=== PATIENT | male | born 1990 | race Caucasian/White ===

== ENCOUNTER 2020-10-11 16:21 | Inpatient (IN) | payer OTHER, SELFPAY ==
[~2020-10-11] VITALS: Ht 188 cm; Wt 76.5 kg
[2020-10-11 16:40] LABS: Calcium, Ionized (POC) 1.03 mmol/L (1.10-1.46); Chloride (POC) 90 mmol/L (98-108); Creatinine (POC) 3.7 mg/dL (0.8-1.3); Glucose (ISTAT POC) >700 mg/dL (70-99); Hemoglobin (POC) 17.7 g/dL (13.5-17.5); Potassium (POC) 7.8 mmol/L (3.5-5.5); Sodium (POC) 112 mmol/L (135-148); Total CO2 (POC) 6 mmol/L (21-32)
[2020-10-11 16:55] LABS: BASOPHILS ABSOLUTE AUTO 0.05 K/mm3 (0.00-0.23); BASOPHILS PERCENT AUTO 0 % (0-2); EOSINOPHILS PERCENT AUTO 0 % (0-6); Hematocrit 49.2 % (37.0-53.0); Hemoglobin 16.4 g/dL (13.5-17.5); IMMATURE GRAN ABSOLUTE AUTO 0.07 K/mm3 (0.00-0.10); IMMATURE GRAN PERCENT AUTO 1 % (0-1); LYMPHOCYTES ABSOLUTE AUTO 0.65 K/mm3 (0.84-5.20); LYMPHOCYTES PERCENT AUTO 4 % (21-46); MONOCYTES ABSOLUTE AUTO 1.52 K/mm3 (0.16-1.47); MONOCYTES PERCENT AUTO 10 % (4-13); Mean Corpuscular HGB 32.1 pg (26.0-34.0); Mean Corpuscular HGB Conc 33.3 g/dL (31.5-36.5); Mean Corpuscular Volume 96 fL (80-100); Mean Platelet Volume 11.4 fL (9.1-12.4); NEUTROPHILS ABSOLUTE AUTO 12.48 K/mm3 (1.96-9.15); NEUTROPHILS PERCENT AUTO 85 % (41-73); Platelet Count 113 K/mm3 (150-400); RDW Coefficient Variation 11.2 % (11.7-14.2); RDW Standard Deviation 39.8 fL (35.1-46.3); Red Blood Cell Count 5.11 M/mm3 (4.30-5.90); White Blood Cell Count 14.77 K/mm3 (4.00-11.30)
[2020-10-11 17:02] LABS: PCO2 Arterial 28.2 mmHg (35-45); PO2 Arterial 420 mmHg (80-100)
[2020-10-11 17:05] LABS: pH Blood Arterial <6.80 (7.35-7.45)
[2020-10-11 17:18] LABS: Alanine Aminotransfer (ALT/SGP 56 U/L (12-78); Albumin, Blood 3.2 g/dL (3.4-5.0); Alk Phos 143 U/L (50-136); Anion Gap 34 mmol/L (6-16); Aspartate Aminotrans (AST/SGOT 50 U/L (12-37); Bilirubin, Total 0.7 mg/dL (0.1-1.0); Blood Urea Nitrogen 82 mg/dL (8-24); Bun/Creatinine Ratio 24.9 (12.0-20.0); CO2, Blood 3 mmol/L (21-32); Calcium, Blood 7.9 mg/dL (8.5-10.1); Chloride, Blood 76 mmol/L (98-108); Creatinine, Blood 3.29 mg/dL (0.60-1.20); Globulin, Blood 3.3 g/dL (2.2-4.0); Glomerular Filtration Rate 23 (60-); Glucose, Blood 857 mg/dL (70-99); Potassium, Blood 7.7 mmol/L (3.5-5.5); Sodium, Blood 113 mmol/L (136-145); Total Protein, Blood 6.5 g/dL (6.4-8.2)
[2020-10-11] MEDS ORDERED: BASAGLAR K100 UNIT/1 (17:25)
[2020-10-11] MEDS ORDERED: HUMALOG KW100 UNIT/1 (17:25)
[2020-10-11 17:42] LABS: Influenza A, PCR Negative (NEGATIVE); Influenza B, PCR Negative (NEGATIVE); Resp Syncytial Virus, PCR Negative (NEGATIVE); SARS-Cov-2 (COVID-19) PCR, MMC Negative (NEGATIVE)
[2020-10-11 17:54] LABS: Beta-hydroxybutyrate >138.0 mg/dL (0.2-2.8); Ethanol (Alcohol), Blood, Med <3 mg/dL; Magnesium, Blood 4.1 mg/dL (1.6-2.4); Phosphorus, Blood 13.6 mg/dL (2.5-4.9)
[2020-10-11 17:55] LABS: Source, Urine Catheter
[2020-10-11 17:57] LABS: Appearance, Urine Hazy (Clear); Bilirubin, Urine Neg (Neg); Blood, Urine 4+ (Neg); Color, Urine Yellow (P-Yellow); Glucose Qualitative, Urine 4+ (Neg); Ketones, Urine 3+ (Neg); Leukocyte Esterase, Urine Neg (Neg); Nitrite, Urine Neg (Neg); Protein, Urine 3+ (Neg); Urobilinogen, Urine NORM (Normal)
[2020-10-11 18:42] LABS: Red Blood Cells, Urine 0-2 /hpf (0-2)
[2020-10-11 18:43] LABS: Amorphous Mod (0-Heavy); Bacteria Few /hpf; Squamous Epithelial Cells Not Seen /hpf (Few)
[2020-10-11 18:47] LABS: U Amphetamine Screen Not Detected; U Barbituate Screen Not Detected; U Benzodiazapine Screen Not Detected; U Buprenorphine Screen Not Detected; U Cannabinoids Screen DETECTED; U Cocaine Screen Not Detected; U Methadone Screen Not Detected; U Methamphetamine Screen Not Detected; U Opiates Screen Not Detected; U Oxycodone Screen Not Detected; U Phencyclidine Screen Not Detected; U Propoxyphene Screen Not Detected
[2020-10-11 19:19] LABS: Glucose, Blood 637 mg/dL (70-99)
[2020-10-11 20:32] LABS: International Normalized Ratio 1.15; Prothrombin Time Results 12.2 Sec (9.7-11.5)
[2020-10-11 20:49] LABS: Thyroid Stimulating Hormone 0.501 uIU/mL (0.360-4.800)
[2020-10-11 20:50] LABS: Bun/Creatinine Ratio 26.8 (12.0-20.0); Calcium, Blood 6.3 mg/dL (8.5-10.1); Creatinine, Blood 2.8 mg/dL (0.60-1.20)
[2020-10-11 20:55] LABS: Potassium, Blood 4.7 mmol/L (3.5-5.5)
--- NOTE | 2020-10-11 21:00 | NUR ---
ADMITTED TO ICU: PT ARRIVES FROM THE ED @ 1915, INTUBATED & SEDATED. INSULIN GTT @ 8. CRITICAL GLUCOSE RECEIVED @ 637. LEVOPHED GTT @ 8mcg/min TO LHA IV. VENT: AC 22/550, 5/35%. CALL TO DR GARCIA FOR CENTRAL LINE PLACEMENT & VENT MANAGEMENT. 1999 -DR GARCIA @ BEDSIDE, CENTRAL LINE PLACED, VASOPRESSIN STARTED. LEVOPHED @ 30mcg/mIN. PRECEDEX INC TO 1.4mcg/kg/hr. PROPOFOL @ 35mcg/kg/min. PT RESPONDS TO PAINFUL STIMULI, ABLE TO FOLLOW SOME COMMANDS. OG TUBE REPLACED D/T COILING IN MOUTH. IMMEDIATE RETURN OF 500ml COFFEE GROUND EMESIS. CXR @ BEDSIDE & DR GARCIA CONFIRMS PLACEMENT. TEMP FERNANDES PATENT & DRAINING TO GRAVITY. SEE FULL ADMIT ASSESSMENT
[2020-10-11 21:19] LABS: Hematocrit 38.5 % (37.0-53.0); Hemoglobin 13.4 g/dL (13.5-17.5)
[2020-10-11 21:36] LABS: Albumin, Blood 2.6 g/dL (3.4-5.0); Anion Gap 22 mmol/L (6-16); Blood Urea Nitrogen 77 mg/dL (8-24); Bun/Creatinine Ratio 26.3 (12.0-20.0); CO2, Blood 7 mmol/L (21-32); Calcium, Blood 6.1 mg/dL (8.5-10.1); Chloride, Blood 104 mmol/L (98-108); Creatinine, Blood 2.93 mg/dL (0.60-1.20); Glomerular Filtration Rate 27 (60-); Glucose, Blood 461 mg/dL (70-99); Phosphorus, Blood 3.8 mg/dL (2.5-4.9); Sodium, Blood 133 mmol/L (136-145)
[2020-10-11 23:32] LABS: PCO2 Arterial 24.8 mmHg (35-45); PO2 Arterial 165 mmHg (80-100); pH Blood Arterial 7.19 (7.35-7.45)
[2020-10-12 03:28] LABS: BASOPHILS PERCENT AUTO 0 % (0-2); EOSINOPHILS ABSOLUTE AUTO 0.01 K/mm3 (0.00-0.68); EOSINOPHILS PERCENT AUTO 0 % (0-6); Hematocrit 32.4 % (37.0-53.0); Hemoglobin 11.8 g/dL (13.5-17.5); IMMATURE GRAN ABSOLUTE AUTO 0.01 K/mm3 (0.00-0.10); IMMATURE GRAN PERCENT AUTO 0 % (0-1); LYMPHOCYTES ABSOLUTE AUTO 0.49 K/mm3 (0.84-5.20); LYMPHOCYTES PERCENT AUTO 14 % (21-46); MONOCYTES ABSOLUTE AUTO 0.54 K/mm3 (0.16-1.47); MONOCYTES PERCENT AUTO 15 % (4-13); Mean Corpuscular HGB 31.6 pg (26.0-34.0); Mean Corpuscular HGB Conc 36.4 g/dL (31.5-36.5); Mean Platelet Volume 10.7 fL (9.1-12.4); NEUTROPHILS ABSOLUTE AUTO 2.51 K/mm3 (1.96-9.15); NEUTROPHILS PERCENT AUTO 70 % (41-73); RDW Coefficient Variation 10.8 % (11.7-14.2); RDW Standard Deviation 34.5 fL (35.1-46.3); Red Blood Cell Count 3.73 M/mm3 (4.30-5.90); White Blood Cell Count 3.56 K/mm3 (4.00-11.30)
[2020-10-12 03:30] LABS: Mean Corpuscular Volume 87 fL (80-100)
[2020-10-12 03:33] LABS: Platelet Count 42 K/mm3 (150-400)
[2020-10-12 03:53] LABS: Albumin, Blood 2.9 g/dL (3.4-5.0); Albumin/Globulin Ratio 1.4 (0.8-1.8); Bilirubin, Total 0.4 mg/dL (0.1-1.0); Bun/Creatinine Ratio 32.9 (12.0-20.0); Calcium, Blood 6.7 mg/dL (8.5-10.1); Creatinine, Blood 2.22 mg/dL (0.60-1.20); Potassium, Blood 3.6 mmol/L (3.5-5.5); Total Protein, Blood 4.9 g/dL (6.4-8.2)
[2020-10-12 05:15] LABS: PCO2 Arterial 32.9 mmHg (35-45); PO2 Arterial 63.7 mmHg (80-100)
[2020-10-12 05:16] LABS: pH Blood Arterial 7.26 (7.35-7.45)
--- NOTE | 2020-10-12 06:11 | NUR ---
SHIFT SUMMARY: VENT: AC 18/500, 5/35%. PROPOFOL INF @ 35mcg/kg/min, PRECEDEX @ 1mcg/kg/hr, D5 1/2NS @ 200ml/hr, INSULIN @ 3u/hr. VASOPRESSIN ON STANDBY @ 0000, LEVOPHED ON STANDBY @ 0230, MAP REMAINS >65. 1220ml URINE OUTPUT. DECREASED OUTPUT FROM OG TUBE. PLAN FOR ECHO THIS AM. WILL REPORT TO DAY SHIFT RN.
--- NOTE | 2020-10-12 07:00 | NUR ---
PT RECEIVED FROM MARYRN, PT LYING IN HOSPITAL BED, INTUBATED 18/500/5/30% EVIDENCE OF DRIED BLOOD AROUND MOUTH, PT WITH PROPOFOL AT 35 MCG/KG/MIN, PRECEDEX AT 1, PROTONIX AT 10, D5 0.45% AT 200, INSULIN AT 4. URINE CLEAR YELLOW FROM FERNANDES AT THIS TIME. PT GRIMACES TO VOICE, DOES NOT OPEN EYES OR SQUEEZE HANDS ON COMMAND. COUGHING PRODUCTIVE OF BROWNISH/GREEN RETURN, NG HAS SAME COLOR RETURN.
--- NOTE | 2020-10-12 08:00 | NUR ---
DR. GARCIA IN TO SEE PT, STATUS UPDATE, ORDERS RECEIVED.
[2020-10-12 10:13] LABS: Albumin, Blood 2.4 g/dL (3.4-5.0); Anion Gap 9 mmol/L (6-16); Blood Urea Nitrogen 71 mg/dL (8-24); Bun/Creatinine Ratio 33.5 (12.0-20.0); CO2, Blood 18 mmol/L (21-32); Calcium, Blood 6.9 mg/dL (8.5-10.1); Chloride, Blood 113 mmol/L (98-108); Creatinine, Blood 2.12 mg/dL (0.60-1.20); Glomerular Filtration Rate 39 (60-); Glucose, Blood 280 mg/dL (70-99); Phosphorus, Blood 1.6 mg/dL (2.5-4.9); Potassium, Blood 3.7 mmol/L (3.5-5.5); Sodium, Blood 140 mmol/L (136-145); Thyroid Stimulating Hormone 0.641 uIU/mL (0.360-4.800)
--- NOTE | 2020-10-12 12:30 | NUR ---
PT PULLING AT TUBES, ABLE TO GET CIRCUIT DISCONNECTED FROM ETT. DR. GARCIA IN, PT STATES HE HAS PAIN AND IS UNCOMFORTABLE, DR. GARCIA ORDERS FENTANYL 50MCG NOW, AND ORDERS PT TO BE EXTUBATED. ARELISDIRECTOR CAMP IN ROOM AND JENNART IN ROOM FOR PREPARATION OF EXTUBATION. PT CALMED AND REASSURED, NODDED RELIEF TO PAIN MEDICATION. PT EXTUBATED, OG TUBE REMOVED WELL @ 1245. COUGH PRESENT, ORIENTED PATIENT TO TIME AND SITUATION, RESTRAINTS REMOVED. RESTING.
[2020-10-12 15:57] LABS: Hematocrit 29.9 % (37.0-53.0)
[2020-10-12 16:05] LABS: Albumin, Blood 2.4 g/dL (3.4-5.0); Anion Gap 10 mmol/L (6-16); Blood Urea Nitrogen 68 mg/dL (8-24); Bun/Creatinine Ratio 33.3 (12.0-20.0); CO2, Blood 16 mmol/L (21-32); Chloride, Blood 115 mmol/L (98-108); Creatinine, Blood 2.04 mg/dL (0.60-1.20); Glomerular Filtration Rate 41 (60-); Glucose, Blood 229 mg/dL (70-99); Phosphorus, Blood 1.4 mg/dL (2.5-4.9); Potassium, Blood 3.4 mmol/L (3.5-5.5); Sodium, Blood 141 mmol/L (136-145)
--- NOTE | 2020-10-12 18:20 | NUR ---
THIS MORNING STARTED WITH JEANNETTE BEING ON PROPOFOL @35, PRECEDEX @ 1/PROTONIX @ 10, INTUBATED ON VENT SETTINGS OF 18/500/5/30%. HIS WRISTS WERE RESTRAINED, OG TUBE IN PLACE WITH GREENISH/BROWN RETURN. HOURLY BLOOD GLUCOSE AND AN INSULIN GTT AT 4U. SEDATION VACATION, PATIENT APPROPRIATE, FOLLOWING COMMANDS. AROUND NOON, PT WAS ABLE TO SEPARATE CIRCUIT FROM ETT. DR. GARCIA ORDERED FENTANYL, AND EXTUBATION. PT WAS EXTUBATED AT 1245, OG TUBE REMOVED. PT APPROPRIATE, REMAINED ON PRECEDEX WITH PROPOFOL TURNED OFF. PT WAS RESTING AND ASKING QUESTIONS APPROPRIATELY. FERNANDES CATHETER REMOVED PER PATIENT REQUEST. BEDSIDE SWALLOW EVAL DONE. PT COMPLAINS OF PAIN, "ALL OVER" MOSTLY HEAD,THROAT, KNEES, HIPS. MEDICATED. THEN PATIENT NAUSEATED, MEDICATED. PT'S MOM ARRIVED FROM OUT OF THE AREA, PT COMPLAINING OF CRAMPS IN HIS LEGS, HEAT PACK APPLIED. HE IS TOLERATING ICE CHIPS, WATER, JELLO. SCD'S REMOVED.
--- NOTE | 2020-10-12 22:00 | NUR ---
CARE ASSUMED 1900 PT A/O X 4, SPEAKING TO HIS MOTHER AT BEDSIDE. PT ABLE TO MAKE NEEDS KNOWN. HE FREQUENTLY MOANS/SOBBING DUE TO PAIN IN LEGS (07/23). PTS MOTHER STATES HE HAS THESE PAIN WHEN HE IS IN DKA BUT NOT AT BASELINE. TREATED WITH FENTANYL PER EMAR, PAIN (06/23) AFTER TREATMENT. PT DOES NOT WANT HEAT PAD/COLD THERAPY. PT HAS CENTRAL LINE IN PLACE, INFUSING/RETURNING BLOOD WELL. VSS. PT ON RA. NSR. PT PRESENTS WITH INEFFECTIVE COPING MECHANISMS. NEEDS ENCOURAGEMENT TO PARTICIPATE IN CARE, POSITION SELF IN BED, ETC. PT ASKED FOR SCD'S TO BE REMOVED, EDUCATED ON IMPORTANCE OF SCD'S, BUT PT STILL WOULD LIKE THEM REMOVED. WILL CONTINUE TO MONITOR.
[2020-10-12 22:18] LABS: Albumin, Blood 2.6 g/dL (3.4-5.0); Anion Gap 11 mmol/L (6-16); Blood Urea Nitrogen 68 mg/dL (8-24); CO2, Blood 16 mmol/L (21-32); Calcium, Blood 7.5 mg/dL (8.5-10.1); Chloride, Blood 115 mmol/L (98-108); Glomerular Filtration Rate 42 (60-); Glucose, Blood 180 mg/dL (70-99); Potassium, Blood 3.3 mmol/L (3.5-5.5); Sodium, Blood 142 mmol/L (136-145)
--- NOTE | 2020-10-13 00:26 | NUR ---
UPDATE PT UP TO BEDSIDE COMMODE, REQUIRES 2 PERSON ASSIST DUE TO PT STATING HAVING "BAD LEG AND HIP PAIN." HAD LARGE BM. PT MOANING/SOBBING BUT UNABLE TO STATE THE EXACT REASON FOR HIS PAIN OR WHAT HAS HELPED IN THE PAST. PT ATTEMPTING TO SIT-UP/ MOVE OUT OF BED TO FIND HIS "PJS" AND PULLING AT LINES. EDUCATED PT ON USING CALL LIGHT FOR ASSISTANCE AT ALL TIMES. PT ALSO HAS NAUSEA AND ATTEMPTS OF VOMIT WITH LITTLE COMING UP. DR. GARCIA CALLED AND UPDATED ON PTS PAIN STATUS. ALSO, ON PTS K OF 3.3, PHOS OF 1. AND BLOOD CULTURE RESULTS OF GRAM POSITIVE COCCI IN CHAINS GROWING. RECIEVED ORDERS FOR KPHOS 30 MM AND FLEXERIL 10 MG Q8 FOR MUSCLE SPASMS.
[2020-10-13 05:27] LABS: BASOPHILS ABSOLUTE AUTO 0.01 K/mm3 (0.00-0.23); BASOPHILS PERCENT AUTO 0 % (0-2); EOSINOPHILS ABSOLUTE AUTO 0.08 K/mm3 (0.00-0.68); EOSINOPHILS PERCENT AUTO 2 % (0-6); Hemoglobin 10.7 g/dL (13.5-17.5); IMMATURE GRAN ABSOLUTE AUTO 0.08 K/mm3 (0.00-0.10); IMMATURE GRAN PERCENT AUTO 2 % (0-1); LYMPHOCYTES ABSOLUTE AUTO 0.67 K/mm3 (0.84-5.20); LYMPHOCYTES PERCENT AUTO 13 % (21-46); MONOCYTES ABSOLUTE AUTO 0.85 K/mm3 (0.16-1.47); MONOCYTES PERCENT AUTO 16 % (4-13); Mean Corpuscular HGB 31.9 pg (26.0-34.0); Mean Corpuscular HGB Conc 36.9 g/dL (31.5-36.5); Mean Corpuscular Volume 87 fL (80-100); NEUTROPHILS ABSOLUTE AUTO 3.61 K/mm3 (1.96-9.15); NEUTROPHILS PERCENT AUTO 68 % (41-73); RDW Coefficient Variation 11.2 % (11.7-14.2); RDW Standard Deviation 35.8 fL (35.1-46.3); Red Blood Cell Count 3.35 M/mm3 (4.30-5.90)
[2020-10-13 05:46] LABS: Platelet Count 36 K/mm3 (150-400)
[2020-10-13 05:52] LABS: Albumin, Blood 2.4 g/dL (3.4-5.0); Anion Gap 12 mmol/L (6-16); Blood Urea Nitrogen 63 mg/dL (8-24); Bun/Creatinine Ratio 29.3 (12.0-20.0); CO2, Blood 15 mmol/L (21-32); Calcium, Blood 7.6 mg/dL (8.5-10.1); Chloride, Blood 114 mmol/L (98-108); Creatinine, Blood 2.15 mg/dL (0.60-1.20); Glomerular Filtration Rate 38 (60-); Glucose, Blood 254 mg/dL (70-99); Phosphorus, Blood 2.5 mg/dL (2.5-4.9); Potassium, Blood 3.5 mmol/L (3.5-5.5); Sodium, Blood 141 mmol/L (136-145)
[2020-10-13 05:59] LABS: Albumin, Blood 2.4 g/dL (3.4-5.0); Bilirubin, Total 0.6 mg/dL (0.1-1.0); Bun/Creatinine Ratio 29.4 (12.0-20.0); Calcium, Blood 7.6 mg/dL (8.5-10.1); Creatinine, Blood 2.14 mg/dL (0.60-1.20); Globulin, Blood 2.4 g/dL (2.2-4.0); Magnesium, Blood 2.1 mg/dL (1.6-2.4); Potassium, Blood 3.5 mmol/L (3.5-5.5); Total Protein, Blood 4.8 g/dL (6.4-8.2)
--- NOTE | 2020-10-13 07:00 | NUR ---
PT RECEIVED FROM MIKAL LAI. IN HIS BED, LYING SUPINE, GRABBING AT HIS LEGS, MOANING. PROTONIX IS INFUSING AT 10, TKO X 2, PT STATES THAT HE HAS PAIN IN HIS THROAT AND LEGS, STATES IT'S NORMAL WHEN IN DKA. HE ALSO "HEARD" MY EARRING DROP AND ROLL ACROSS THE FLOOR. I TOLD HIM THAT I DIDN'T HAVE ANY EARRINGS IN TODAY, HE SAID I CAN HEAR IT ROLLING. COOPERATIVE AND USES MANNERS. ORIENTED TO SITUATION AND CIRCUMSTANCES, USING URINAL APPROPRIATELY.
--- NOTE | 2020-10-13 07:38 | NUR ---
SHIFT SUMMARY PT A/O X 4. CONTINUES TO MOAN IN PAIN WHEN NURSES ENTER THE ROOM. STATES THE PAIN IS 10/10 IN LOWER EXTREMS. PT STATES HAVING PAIN AT BASELINE BUT PN IS WORSE WHEN PT HAS DKA. TREATED WITH EMAR WITH LITTLE EFFECT (9/10). PT DOES NOT WANT TO KEEP SCD'S ON DUE PAIN. PT HAS ELEVATED SBP 140-150'S WHEN COMPLAINING OF PAIN. TREATED WITH EMAR. NSR T/O SHIFT, HR 90-100'S. PT ABLE TO TOLERATE WATER AND PUDDING PO. HAVING SLIGHT NAUSEA BUT NO VOMITING T/O SHIFT. PROTONIX DRIP INFUSING IN LEFT AV IV. TKO TO RIGHT CENTRAL LINE. PT USES URINAL WITH MINIMAL ASSISTANCE, URINE YELLOW/CLEAR. WILL REPORT TO ONCOMING SHIFT.
[2020-10-13 08:10] LABS: HBSAG SCREEN Negative (Negative); HEP A AB, IGM Negative (Negative); HEP B CORE AB, IGM Negative (Negative); HEP C VIRUS AB <0.1 (0.0-0.9); HIV SCREEN 4TH GENERATION WRFX Non Reactive (Non Reactive)
[2020-10-13 10:05] LABS: Percent Saturation 36.5 % (20.0-50.0)
--- NOTE | 2020-10-13 12:55 | NUR ---
BLOOD REFUSAL- PT STATES DOES NOT WANT TO RECEIVE BLOOD-SIGNED REFUSAL.
--- NOTE | 2020-10-13 17:57 | NUR ---
JEANNETTE HAS HAD A GOOD AFTERNOON, HE IS BEGINNING TO REST BETTER. HE HAS TOLERATED ORAL INTAKE, A SMALL AMOUNT BECAUSE HE SAYS HIS THROAT HURTS TOO MUCH TO HAVE TOO MUCH. ENCOURAGING FLUIDS, WATER, GREEN TEA FROM HIS MOM. HE DID STAND AND SHUFFLE AT THE SIDE OF THE BED AT LUNCH TIME TODAY. DANGLED ON THE SIDE OF THE BED, HE MOVED MORE AND REPOSITIONED HIMSELF OFTEN. THE NEURONTIN AND THE ASPERCREME SEEM TO HAVE IMPROVED HIS LEG CRAMPS, HE IS MOANING LESS OFTEN AND ONLY COMPLAINING OF HEADACHE. TYLENOL GIVEN PER HIS REQUEST. COOL WASHCLOTHS GIVEN, WARM BLANKET AROUND HIS SHOULDERS. REPORT GIVEN TO JAGJIT FLORES RN FOR PCU#6.
--- NOTE | 2020-10-13 18:30 | NUR ---
TRANSFERRED VIA BED TO PCU-6, PT TOLERATED TRANSFER WELL, MOVED FROM BED TO BED WITH NO ASSIST FROM NURSES.
--- NOTE | 2020-10-13 18:39 | NUR ---
PATIENT ARRIVED TO PCU AND TRANSFERED SELF TO BED BY SCOOTING SELF FROM ONE BED TO THE OTHER. PATIENT RESPONDS TO VERBAL STIMULUS, NO SIGNS OF ACUTE DISTRESS, VSS, WCTM.
[2020-10-13 21:18] LABS: Vancomycin, Trough 14.6 ug/mL (5.0-10.0)
--- NOTE | 2020-10-13 21:31 | NUR ---
CARE ASSUMPTION / CALL TO ACTUARIAL ANALYST PT A&O X4. MONITOR SHOWS NSR, HR 80's-90's. SPO2 > 92% ON RA. BP ELEVATED, OTHERWISE VSS. CALL TO ACTUARIAL ANALYST BRITTANY TO REPORT HTN W/ ACTUARIAL ANALYST ORDER FOR ONE TIME PO CLONIDINE, SEE ORDER. PT REPORTS SORE THROAT POST PREVIOUS EXTUBATION. PT CHOKING ON GABAPENTIN CAPSULE THIS SHIFT, RESOLVED W/ COUGHING & DRINKING WATER. PT TOLERATING SMALLER PILLS LIKE CLONIDINE TABLET FINE.
--- NOTE | 2020-10-14 01:00 | NUR ---
ELEVATED BP CALL TO MD MARSHALL TO REPORT BP STILL ELEVATED DESPITE PREVIOUS PO 1X CLONIDINE TX. W/ NEW ORDER FOR PRN IV HYDRALAZINE, SEE ORDER.
[2020-10-14 04:00] LABS: Hematocrit 31.4 % (37.0-53.0); Hemoglobin 11.4 g/dL (13.5-17.5); Mean Corpuscular HGB 31.1 pg (26.0-34.0); Mean Corpuscular HGB Conc 36.3 g/dL (31.5-36.5); Mean Corpuscular Volume 86 fL (80-100); Mean Platelet Volume 12.6 fL (9.1-12.4); RDW Coefficient Variation 11.4 % (11.7-14.2); RDW Standard Deviation 36.2 fL (35.1-46.3); Red Blood Cell Count 3.66 M/mm3 (4.30-5.90); White Blood Cell Count 7.13 K/mm3 (4.00-11.30)
[2020-10-14 04:06] LABS: Platelet Count 38 K/mm3 (150-400)
[2020-10-14 04:56] LABS: Albumin, Blood 2.4 g/dL (3.4-5.0); Anion Gap 12 mmol/L (6-16); Blood Urea Nitrogen 45 mg/dL (8-24); Bun/Creatinine Ratio 26.6 (12.0-20.0); CO2, Blood 17 mmol/L (21-32); Chloride, Blood 116 mmol/L (98-108); Creatinine, Blood 1.69 mg/dL (0.60-1.20); Glomerular Filtration Rate 51 (60-); Glucose, Blood 119 mg/dL (70-99); Phosphorus, Blood 1.9 mg/dL (2.5-4.9); Potassium, Blood 2.4 mmol/L (3.5-5.5); Sodium, Blood 145 mmol/L (136-145)
--- NOTE | 2020-10-14 05:13 | NUR ---
CRITICAL K / CALL TO MD OLMOS NOTIFIED OF PT K: 2.4 THIS AM W/ ORDER FOR 60 MEQ IV KCL & 40 MEQ PO KCL. ALSO NOTIFIED OF PT BP STILL ELEVATED DESPITE IV HYDRALAZINE TX. W/ ORDER TO GIVE ADDITIONAL DOSE OF HYDRALAZINE NOW.
[2020-10-14 05:27] LABS: BAND PERCENT MAN 6 % (0-8); BASOPHILS PERCENT MAN 0 % (0-2); EOSINOPHILS ABSOLUTE MAN 0.28 K/mm3 (0.00-0.68); EOSINOPHILS PERCENT MAN 4 % (0-6); LYMPHOCYTES ABSOLUTE MAN 0.71 K/mm3 (0.84-5.20); LYMPHOCYTES PERCENT MAN 10 % (21-46); MONOCYTES ABSOLUTE MAN 0.85 K/mm3 (0.16-1.47); MONOCYTES PERCENT MAN 12 % (4-13); NEUTROPHILS ABSOLUTE MAN 5.27 K/mm3 (1.96-9.15); SEG NEUTROPHILS PERCENT MAN 68 % (41-73); TOTAL CELLS COUNTED 100
--- NOTE | 2020-10-14 06:35 | NUR ---
SHIFT SUMMARY PT A&O X4. BP ELEVATED, OTHERWISE VSS. SPO2 > 92% ON RA. MONITOR SHOWS NSR, HR 70's-90's. PT C/O SORE THROAT & EAR PAIN, MEDICATED W/ PRN TYLENOL PER EMAR X1 THIS SHIFT W/ PT REPORT OF IMPROVEMENT. PT DIFFICULTY SWALLOWING POST EXTUBATION. PT TOLERATING PILLS TAKEN W/ APPLESAUCE. PT W/ BLOODY NOSE THIS SHIFT, RESOLVED. PT POTASSIUM CRITICALLY LOW THIS AM. IV KCL INFUSING PER ORDERS. CBG's STABLE. WILL CONTINUE TO MONITOR & PROVIDE CARE UNTIL REPORT OFF TO DAY SHIFT RN.
--- NOTE | 2020-10-14 16:33 | NUR ---
PHONE CALL; PHONE CALL TO DR. CURIEL TO REPORT BLOOD SUGAR OF 410. VERBAL ORDER FROM DR. CURIEL TO GIVE 10UNITS LANTUS IN ADDITION TO 12 UNITS REGULAR HUMILIN PER SLIDING SCALE.
--- NOTE | 2020-10-14 17:34 | NUR ---
SHIFT SUMMARY; A/A/OX4 THROUGHOUT SHIFT. INDEPENDANT IN ROOM WITH STANDBY ASSIST. SHOWER TODAY WITHOUT DIFFICULTY. MOM AT BESIDE IN AFTERNOON. INSULIN COVERAGE NEEDED. VSS, NO ACUTE MEDICAL CHANGES DURING SHIFT. WILL CONTINUE TO MONITOR AND TREAT UNTIL CHANGE OF SHIFT.
[2020-10-15 05:26] LABS: Hematocrit 29.5 % (37.0-53.0); Hemoglobin 10.8 g/dL (13.5-17.5); Mean Corpuscular HGB Conc 36.6 g/dL (31.5-36.5); Mean Corpuscular Volume 88 fL (80-100); Platelet Count 71 K/mm3 (150-400); RDW Coefficient Variation 11.9 % (11.7-14.2); RDW Standard Deviation 37.9 fL (35.1-46.3); Red Blood Cell Count 3.37 M/mm3 (4.30-5.90); White Blood Cell Count 11.48 K/mm3 (4.00-11.30)
[2020-10-15 05:54] LABS: BAND PERCENT MAN 4 % (0-8); BASOPHILS PERCENT MAN 0 % (0-2); EOSINOPHILS PERCENT MAN 7 % (0-6); LYMPHOCYTES PERCENT MAN 7 % (21-46); MONOCYTES ABSOLUTE MAN 1.72 K/mm3 (0.16-1.47); MONOCYTES PERCENT MAN 15 % (4-13); NEUTROPHILS ABSOLUTE MAN 8.15 K/mm3 (1.96-9.15); SEG NEUTROPHILS PERCENT MAN 67 % (41-73); TOTAL CELLS COUNTED 100
[2020-10-15 05:57] LABS: Alanine Aminotransfer (ALT/SGP 23 U/L (12-78); Albumin, Blood 2.3 g/dL (3.4-5.0); Albumin/Globulin Ratio 0.7 (0.8-1.8); Alk Phos 69 U/L (50-136); Anion Gap 10 mmol/L (6-16); Aspartate Aminotrans (AST/SGOT 28 U/L (12-37); Bilirubin, Total 0.6 mg/dL (0.1-1.0); Blood Urea Nitrogen 28 mg/dL (8-24); Bun/Creatinine Ratio 20.1 (12.0-20.0); CO2, Blood 22 mmol/L (21-32); Calcium, Blood 8.2 mg/dL (8.5-10.1); Chloride, Blood 112 mmol/L (98-108); Creatinine, Blood 1.39 mg/dL (0.60-1.20); Globulin, Blood 3.1 g/dL (2.2-4.0); Glomerular Filtration Rate >60 (60-); Glucose, Blood 107 mg/dL (70-99); Potassium, Blood 2.7 mmol/L (3.5-5.5); Sodium, Blood 144 mmol/L (136-145); Total Protein, Blood 5.4 g/dL (6.4-8.2)
--- NOTE | 2020-10-15 06:36 | NUR ---
SHIFT SUMMARY NO ACUTE CHANGES THIS SHIFT. PT A&OX4. SP02>92% ON RA. PT C/O OF SORE THROAT WHEN SWALLOWING PILLS. PT STATES THIS IS DUE TO "THROWING UP FOR 3 DAYS" BEFORE HE CAME TO HOSPITAL. TELEMETRY READS ST, HR 90'S-100'S. PT DID HAVE ELEVATED BP, GAVE HYDRALAZINE PER EMAR X1 WITH SUCCESSFUL LOWERING OF BP. PT USED URINAL AT BEDSIDE. PT C/O OF HEADACHE AND HIP PAIN, 03/23. MEDICATED W/ TYLENOL PER EMAR X1 AND GAVE ICE PACK FOR HEAD/HEAT PAD FOR HIPS W/ SUCCESSFUL LESSENING OF PAIN. PT POTASSIUM LABS LOW: 2.7 THIS AM. CALL PLACED TO MD MCCLELLAN. MD MCCLELLAN WITH ORDERS FOR KCL, SEE EMAR/ORDER. PT SLEPT OFF AND ON T/O NIGHT. CALL LIGHT IN REACH. WILL GIVE REPORT TO ONCOMING DAY SHIFT NURSE.
--- NOTE | 2020-10-15 12:01 | NUR ---
PT REPORTS IV TO L AC IS TENDER AND PAINFUL. PURPLE BRUISING NOTED TO L FA FROM AC SITE DISTAL TO MID FA. NO REDNESS OR STREAK NOTED AT INSERTION SITE. 18G IV REMOVED, CATHETER INTACT. PT TOLERATED WELL. CENTRAL LINE IN PLACE FOR IV ACCESS AT THIS TIME.
--- NOTE | 2020-10-15 14:10 | NUR ---
PT APPEARS TO BE DOING WELL THIS AM, BS 147 @ BREAKFAST, NO INSULIN COVERAGE NEEDED. PT PARTICIPATED WITH PT, WALKING 100 FT, STEADY GAIT. UP TO RESTROOM INDEPENDENTLY. PT CHANGED TO MEDICAL STATUS AND TRANSFERRED TO RM #[id number], REPORT GIVEN TO MIKAL VÁZQUEZ.
--- NOTE | 2020-10-15 18:24 | NUR ---
SHIFT SUMMARY PATIENT IS ALERT AND ORIENTED. INDEPENDENT IN THE ROOM. DENIES ANY CHEST PAIN OR SHORTNESS OF BREATH. PATIENT NOTED TO HAVE RIGHT EAR PAIN. HE WAS STARTED ON NEOMYCIN EAR DROPS TODAY. THAT SEEMED TO HELP THE EAR PAIN. WILL CONTINUE TO MONITOR FOR ANY OTHER CHANGES. HE DENIES ANY INCREASE OF HEAD PRESSURE. HE IS STILL HAVING NOSE BLEEDS ON AND OFF. PATIENT DOES NOT WANT ANY BLOOD PRODUCTS. HIS PLATELET COUNT IS LOW. SLOWLY COMING UP NATURALLY. PATIENT DOES SEEM TO HAVE CHILLS AND HEADACHE.
[2020-10-16 05:45] LABS: Hematocrit 28.7 % (37.0-53.0); Hemoglobin 10.4 g/dL (13.5-17.5); Mean Corpuscular HGB Conc 36.2 g/dL (31.5-36.5); Mean Corpuscular Volume 88 fL (80-100); Mean Platelet Volume 10.5 fL (9.1-12.4); Platelet Count 123 K/mm3 (150-400); RDW Coefficient Variation 11.9 % (11.7-14.2); RDW Standard Deviation 38.5 fL (35.1-46.3); Red Blood Cell Count 3.25 M/mm3 (4.30-5.90); White Blood Cell Count 16.05 K/mm3 (4.00-11.30)
--- NOTE | 2020-10-16 05:54 | NUR ---
SHIFT SUMMARY- PT. A&O, INDEP IN ROOM. C/O HEADACHE, AMISHA EAR PAIN, AND SORE THROAT. ALSO BP ELEVATED. MEDICATED FOR PAIN, NASAL CONGESTION, AND HTN PER EMAR. EAR GTTS ADMINISTERED WITH SCHEDULED MEDS DURING THE EVENING. PT. REPORTED SOME RELIEF AND BP IMPROVED. SLEPT ON/OFF DURING THE NIGHT. SLIGHT NOSEBLEED LAST NIGHT, DENIED ANY OTHER NEEDS T/O THE NIGHT. APPEARS TO BE SLEEPING COMFORTABLY IN BED AT THIS TIME, NO APPARENT DISTRESS NOTED. CALL LIGHT WITHIN REACH AND SIDE RAILS UPX2. WILL CONT TO MONITOR.
[2020-10-16 06:17] LABS: Alanine Aminotransfer (ALT/SGP 17 U/L (12-78); Albumin, Blood 2.2 g/dL (3.4-5.0); Albumin/Globulin Ratio 0.7 (0.8-1.8); Alk Phos 80 U/L (50-136); Anion Gap 10 mmol/L (6-16); Aspartate Aminotrans (AST/SGOT 28 U/L (12-37); Bilirubin, Total 0.5 mg/dL (0.1-1.0); Blood Urea Nitrogen 22 mg/dL (8-24); CO2, Blood 23 mmol/L (21-32); Calcium, Blood 8.2 mg/dL (8.5-10.1); Chloride, Blood 105 mmol/L (98-108); Creatinine, Blood 1.22 mg/dL (0.60-1.20); Globulin, Blood 3.3 g/dL (2.2-4.0); Glomerular Filtration Rate >60 (60-); Glucose, Blood 197 mg/dL (70-99); Potassium, Blood 2.8 mmol/L (3.5-5.5); Sodium, Blood 138 mmol/L (136-145); Total Protein, Blood 5.5 g/dL (6.4-8.2)
[2020-10-16 06:23] LABS: BASOPHILS ABSOLUTE MAN 0.16 K/mm3 (0.00-0.23); BASOPHILS PERCENT MAN 1 % (0-2); EOSINOPHILS ABSOLUTE MAN 0.32 K/mm3 (0.00-0.68); EOSINOPHILS PERCENT MAN 2 % (0-6); LYMPHOCYTES ABSOLUTE MAN 2.88 K/mm3 (0.84-5.20); LYMPHOCYTES PERCENT MAN 18 % (21-46); MONOCYTES ABSOLUTE MAN 2.72 K/mm3 (0.16-1.47); MONOCYTES PERCENT MAN 17 % (4-13); MYELOCYTE ABSOLUTE MAN 0.16 K/mm3 (0.00-0.00); MYELOCYTE PERCENT MAN 1 % (0-0); NEUTROPHILS ABSOLUTE MAN 9.79 K/mm3 (1.96-9.15); SEG NEUTROPHILS PERCENT MAN 61 % (41-73); TOTAL CELLS COUNTED 100
[2020-10-16 14:09] LABS: HEPARIN INDUCED PLATELET AB 0.047 OD (0.000-0.400)
--- NOTE | 2020-10-16 18:15 | NUR ---
NO ACUTE EVENTS THIS SHIFT, VSS. PATIENT IRRITABLE AT TIMES, MAKES STATEMENTS SUCH "THE DOCTORS DON'T LISTEN TO ME". PATIENT ENCOURAGED TO FOCUS ON THE PRESENT TIME, REASSURED BY THIS RN THAT THE DOCTORS MAKE DAILY ROUNDS AND THAT HIS CONCERNS WILL BE ADDRESSED DURING ROUNDS. PATIENT WORKED WITH PT TODAY AFTER THE PHYSICAL THERAPIST THOROUGHLY EXPLAINED THE IMPORTANTCE OF ACTIVITY AND STRENGTH BUILDING DURING HOSPITALIZATION. PATIENT TOLERATING AMBULATING IN HALLWAY WELL. PATIENT WAS IRRITABLE WITH GRANITE WORKER TODAY DURING DISCUSSION OF HIS NORMAL DIABETES CARE REGIMEN, HOWEVER IS AGREEABLE TO CHANGES MADE TO INSULIN DOSING TODAY. PRANDIAL DOSING STARTED, ADMIN PER EMAR. PATIENT HAD SIGNIFICANT SWELLING ON R. SIDE OF FACE, DR. CURIEL NOTIFIED, ABX ORDERS ADJUSTED AND HEAD/NECK CT DONE TODAY.
--- NOTE | 2020-10-17 04:36 | NUR ---
SHIFT SUMMARY- PT. NOTED TO BE IRRITATED IN THE EVENING REGARDING INSULIN AND EAR GTTS. STATED "DOES NOT FEEL LIKE HE IS GETTING BETTER". REASSURED PT. BLOOD SUGARS APPEAR TO BE IMPROVING AND ABX CHANGED DUE DEVELOPING FACIAL/EYE SWELLING. HAD A NOSEBLEED 1X. C/O PAIN TO FACE, JAW, AND EAR. MEDICATED PER EMAR WITH GOOD EFFECT. ASLEEP THE REST OF THE NIGHT, NO APPARENT DISTRESS NOTED. CALL LIGHT WITHIN REACH AND SIDE RAILS UP X2. WILL CONT TO MONITOR.
[2020-10-17 05:34] LABS: Hematocrit 26.8 % (37.0-53.0); Hemoglobin 9.6 g/dL (13.5-17.5); Mean Corpuscular HGB 31.8 pg (26.0-34.0); Mean Corpuscular HGB Conc 35.8 g/dL (31.5-36.5); Mean Corpuscular Volume 89 fL (80-100); Mean Platelet Volume 9.7 fL (9.1-12.4); Platelet Count 183 K/mm3 (150-400); RDW Standard Deviation 38.7 fL (35.1-46.3); Red Blood Cell Count 3.02 M/mm3 (4.30-5.90); White Blood Cell Count 16.54 K/mm3 (4.00-11.30)
[2020-10-17 06:09] LABS: Alanine Aminotransfer (ALT/SGP 14 U/L (12-78); Albumin/Globulin Ratio 0.6 (0.8-1.8); Alk Phos 76 U/L (50-136); Anion Gap 11 mmol/L (6-16); Aspartate Aminotrans (AST/SGOT 25 U/L (12-37); Bilirubin, Total 0.6 mg/dL (0.1-1.0); Blood Urea Nitrogen 17 mg/dL (8-24); Bun/Creatinine Ratio 14.8 (12.0-20.0); CO2, Blood 23 mmol/L (21-32); Calcium, Blood 7.8 mg/dL (8.5-10.1); Chloride, Blood 106 mmol/L (98-108); Creatinine, Blood 1.15 mg/dL (0.60-1.20); Globulin, Blood 3.5 g/dL (2.2-4.0); Glomerular Filtration Rate >60 (60-); Glucose, Blood 138 mg/dL (70-99); Potassium, Blood 2.8 mmol/L (3.5-5.5); Sodium, Blood 140 mmol/L (136-145); Total Protein, Blood 5.5 g/dL (6.4-8.2)
[2020-10-17 06:13] LABS: BASOPHILS PERCENT MAN 0 % (0-2); EOSINOPHILS ABSOLUTE MAN 0.33 K/mm3 (0.00-0.68); EOSINOPHILS PERCENT MAN 2 % (0-6); LYMPHOCYTES ABSOLUTE MAN 0.99 K/mm3 (0.84-5.20); LYMPHOCYTES PERCENT MAN 6 % (21-46); MONOCYTES ABSOLUTE MAN 3.63 K/mm3 (0.16-1.47); MONOCYTES PERCENT MAN 22 % (4-13); MYELOCYTE ABSOLUTE MAN 0.16 K/mm3 (0.00-0.00); MYELOCYTE PERCENT MAN 1 % (0-0); NEUTROPHILS ABSOLUTE MAN 11.41 K/mm3 (1.96-9.15); SEG NEUTROPHILS PERCENT MAN 69 % (41-73); TOTAL CELLS COUNTED 100
--- NOTE | 2020-10-17 19:39 | NUR ---
SHIFT SUMMARY PT AxOx4. COOPERATIVE WITH CARE TODAY. PT EXPRESSED PAIN IN FACE ON AND OFF TODAY. REPORTS RELIEF FROM ICE PACKS. PT REPORTED R SIDE SWELLING WAS SPREADING TO LEFT THIS AM. DR NAVARRO NOTIFIED. MOTHER, MIGUELANGEL IN ROOM TODAY. SPOKE WITH DR NAVARRO AND WAS UPDATED ON PLAN OF CARE. PLAN IS TO RECEIVE IV ABX AND MONITOR FOR CELLULITIS TO IMPROVE. BP TRENDING ELEVATED T/O SHIFT. DR NOTIFIED. BP MEDS ORDERED AND ADMINISTERED. PT INDEPENDENT AND CONTINENT. HAS HAD GOOD APPETITE TODAY. VITALS REVIEWED. PT CURRENTLY RESTING IN BED WATCHING TV. DENIES ANY NEEDS AT THIS TIME.
[2020-10-18 05:54] LABS: BASOPHILS ABSOLUTE AUTO 0.04 K/mm3 (0.00-0.23); BASOPHILS PERCENT AUTO 0 % (0-2); EOSINOPHILS ABSOLUTE AUTO 0.48 K/mm3 (0.00-0.68); EOSINOPHILS PERCENT AUTO 3 % (0-6); Hematocrit 28.7 % (37.0-53.0); Hemoglobin 10.2 g/dL (13.5-17.5); IMMATURE GRAN ABSOLUTE AUTO 0.24 K/mm3 (0.00-0.10); IMMATURE GRAN PERCENT AUTO 1 % (0-1); LYMPHOCYTES ABSOLUTE AUTO 1.77 K/mm3 (0.84-5.20); LYMPHOCYTES PERCENT AUTO 10 % (21-46); MONOCYTES ABSOLUTE AUTO 3.29 K/mm3 (0.16-1.47); MONOCYTES PERCENT AUTO 19 % (4-13); Mean Corpuscular HGB Conc 35.5 g/dL (31.5-36.5); Mean Corpuscular Volume 90 fL (80-100); Mean Platelet Volume 9.4 fL (9.1-12.4); NEUTROPHILS ABSOLUTE AUTO 11.42 K/mm3 (1.96-9.15); NEUTROPHILS PERCENT AUTO 66 % (41-73); Platelet Count 280 K/mm3 (150-400); RDW Coefficient Variation 12.3 % (11.7-14.2); RDW Standard Deviation 40.6 fL (35.1-46.3); Red Blood Cell Count 3.19 M/mm3 (4.30-5.90); White Blood Cell Count 17.24 K/mm3 (4.00-11.30)
[2020-10-18 06:09] LABS: Anion Gap 9 mmol/L (6-16); Blood Urea Nitrogen 13 mg/dL (8-24); Bun/Creatinine Ratio 12.5 (12.0-20.0); CO2, Blood 24 mmol/L (21-32); Calcium, Blood 8.4 mg/dL (8.5-10.1); Chloride, Blood 107 mmol/L (98-108); Creatinine, Blood 1.04 mg/dL (0.60-1.20); Glomerular Filtration Rate >60 (60-); Glucose, Blood 218 mg/dL (70-99); Potassium, Blood 3.3 mmol/L (3.5-5.5); Sodium, Blood 140 mmol/L (136-145)
--- NOTE | 2020-10-18 08:36 | NUR ---
SUMMARY: A/OX4, INDEPENDENT, CALLS APPROPRIATELY AND SPECIFIES NEEDS. FACIAL CELLULITIS PERSISTS AND HAS BEGUN TO MIGRATE FROM RIGHT TO LEFT SIDE OF FACE, R.SIDE REMAINS WORSE STILL THOUGH. HE REPORTS [place]OW[place], EARACHES AND NASAL CONGESTION W/PRN TYLENOL, EAR GTTS AND NASAL SPRAY RECIEVED. PT'S CENTRAL LINE IS SL BETWEEN IV ABX. HR AND BP CONT'S ELEVATED BUT PRN HYDRALAZINE PARAMETERS WERE NOT MET. PT IS ASYMPTOMATIC OF CARDIAC DISTRESS. HE USES URINAL AD LORETTA AND IS UP BY SELF IN ROOM. NO ACUTE CHANGES, VSS/AFEBRILE (ORAL TEMPS WNL BUT TEMPORAL READ HIGH). WCTM AND REPORT TO DAY RN.
--- NOTE | 2020-10-18 18:44 | NUR ---
SHIFT SUMMARY: NO ACUTE EVENTS. C/O PAIN IN FACE, R>L; TYLENOL GIVEN WITH MINIMAL RELIEF. ICE PACK OFFERED. NO EPISTAXSIS THIS SHIFT. PERIORBITAL EDEMA IS RESOLVING SLOWLY, L EYE IS ALMOST ALL THE WAY OPEN. GOOD APPETITE, IS EATING SLOWLY D/T PAIN. GETTING OOB INDEPENDENTLY. NO OTHER COMPLAINTS.
--- NOTE | 2020-10-19 04:40 | NUR ---
ICT DEVELOPMENT MANAGER SUMMARY A/OX4, COOPERATIVE WITH CARE. FACIAL SWELLING REMAINS WORSE ON R. SIDE AND EXTENDS SLIGHTLY TO L. SIDE. C/O EARACHE BILATERALLY, MEDICATED PER EMAR. RECEIVED IV ABX T/O SHIFT. CENTRAL LINE SL. BREATHING IS UNLABORED. DENIES ANY NEEDS AT THIS TIME. BED IN LOWEST POSITION WITH CALL LIGHT IN REACH. WILL CONTINUE TO MONITOR AND REPORT TO ONCOMING RN.
--- NOTE | 2020-10-19 17:13 | NUR ---
SHIFT SUMMARY PT CONTINUES TO C/O FACIAL NUMBNESS T/O DAY. FACIAL PAIN TREATED WITH PRN TYLENOL. PT REPORTS LITTLE RELIEF FROM THIS. CARB COUNT COMPLETED ADTER MEALS. PT STATES HE IS "EXTRA HUNGRY FROM THE STERIODS". EVENING SUGAR ELEVATED AT 392. PT INSTRUCTED TO TRY TO MAKE SNACK CHOICES WITH LESS SUGAR IN THEM. PT STATES HE UNDERSTANDS AND WILL TRY. TREATED ORDERED WITH INSULIN. PT REMAINSHTN T/O SHIFT, THIS IS CONSISTANT WITH HIS TRENDS RECENTLY. DR. MELENDEZ IN TO SEE PT THIS SHIFT. RECOMMENDING ANOTHER DAY OF ANTIBIOTICS. CENTRAL LINE DCED ORDERED AND PERIPHERAL PLACED TO L FA. PT AMBULATING IN ROOM INDEPENDENTLY AND DENIES OTHER NEEDS A THIS TIME. VS REVIEWED. NO OTHER ACUTE CHANGES IN ASSESSMENT AT THIS TIME. PT MOTHER AT BEDSIDE VISITING. CALL LIGHT IN REACH.
--- NOTE | 2020-10-20 03:56 | NUR ---
MANAGER CHEMICAL SUMMARY A/OX4, PLEASANT AND COOPERATIVE WITH CARE. CONTINUES TO HAVE FACIAL SWELLING AND REDNESS THAT IS WORSE ON THE R. SIDE. BG'S CONTINUE TO BE ELEVATED, CURRENTLY RECEIVING STEROIDS. VSS. NO ACUTE CHANGES AT THIS TIME. BED IN LOWEST POSITION WITH CALL LIGHT IN REACH. WILL CONTINUE TO MONITOR AND REPORT TO ONCOMING RN.
--- NOTE | 2020-10-20 16:31 | NUR ---
PT IS A/OX3, PLEASANT AND COOPERATIVE, THE PT IS UP IND IN HIS ROOM, THE PT APPEARS TO BE BREATHING EASILY ON ROOM, PTS FACE CONTINUES TO BE EDEMATUS BUT REPORTED TO BE MUCH IMPROVED COMPARED TO YESTERDAY, THE PT WAS MEDICATED FOR PAIN WITH TYLENOL, PT WAS UP AND HAD A SHOWER TODAY, FAMILY WAS IN TO SEE THE PT, CALL LIGHT IN REACH, WILL CONTINUE TO MONITOR AND ASSESS FOR CHANGES
--- NOTE | 2020-10-20 21:43 | NUR ---
1999 PT WENT FOR AMBULATION AROUND ENTIRE UNIT WITH GAIT STEADY AND EVEN; PT ATE [facility].
--- NOTE | 2020-10-21 03:13 | NUR ---
SHIFT SUMMARY: 30 Y/O MALE RESTED COMFORTABLY ALL SHIFT; PT ABLE TO OPEN RIGHT EYE AND VISUALIZE OBJECTS WITHOUT ANY PROBLEM; PT RATES PAIN 5/10 WITH TYLENOL 650MG PO GIVEN X 1 WITH RELIEF FELT; EAGER TO RETURN HOME; PT CBG 132 H.S. WITH SNACK EATEN BY PATIENT; DENIES NAUSEA; BED LOW POSITION WITH CALL LIGHT AT SIDE.
--- NOTE | 2020-10-21 09:12 | NUR ---
US Head/[place] Received V.O. for US of head r/t swelling of the R face and [place] for pain Q6P from Dr. Agee. Orders updated.
--- NOTE | 2020-10-21 15:49 | NUR ---
[place] V.O. received from Dr. Agee for [place] BID and change [place] from q6 prn to q4 prn.
--- NOTE | 2020-10-21 19:06 | NUR ---
Shift Summary A/Ox4, pleasant and cooperative with care. Up in room independently. Medicated for R sided facial pain x 2 with good relief. Blood glucose well controlled with carb counting. Mom was at bedside most of the day. No other complaints from patient. Patient resting comfortably in bed and no longer tearful. Report handed to night RN.
--- NOTE | 2020-10-21 22:19 | NUR ---
PT RESTING COMFORTABLY IN BED; CHEERFUL.
--- NOTE | 2020-10-22 04:03 | NUR ---
SHIFT SUMMARY; 30 Y/O MALE RESTED COMFORTABLY ALL SHIFT; PT DENIES PAIN OR NAUSEA; UP AD LORETTA; NO VISION ISSUES VOICED; PT RIGHT SIDE CHECK SLIGHTLY TENDER TO TOUCH; CBG NORMAL; EAGER TO RETURN HOME; BED LOW POSITION WITH CALL LIGHT AT SIDE.
[2020-10-22 05:25] LABS: BASOPHILS ABSOLUTE AUTO 0.05 K/mm3 (0.00-0.23); BASOPHILS PERCENT AUTO 0 % (0-2); EOSINOPHILS ABSOLUTE AUTO 0.08 K/mm3 (0.00-0.68); EOSINOPHILS PERCENT AUTO 1 % (0-6); Hematocrit 27.9 % (37.0-53.0); Hemoglobin 9.4 g/dL (13.5-17.5); IMMATURE GRAN PERCENT AUTO 1 % (0-1); LYMPHOCYTES ABSOLUTE AUTO 2.05 K/mm3 (0.84-5.20); LYMPHOCYTES PERCENT AUTO 15 % (21-46); MONOCYTES PERCENT AUTO 9 % (4-13); Mean Corpuscular HGB 31.3 pg (26.0-34.0); Mean Corpuscular HGB Conc 33.7 g/dL (31.5-36.5); Mean Corpuscular Volume 93 fL (80-100); Mean Platelet Volume 8.8 fL (9.1-12.4); NEUTROPHILS ABSOLUTE AUTO 10.54 K/mm3 (1.96-9.15); NEUTROPHILS PERCENT AUTO 75 % (41-73); Platelet Count 472 K/mm3 (150-400); RDW Coefficient Variation 12.5 % (11.7-14.2); RDW Standard Deviation 42.2 fL (35.1-46.3); White Blood Cell Count 14.02 K/mm3 (4.00-11.30)
[2020-10-22 05:51] LABS: Anion Gap 6 mmol/L (6-16); Blood Urea Nitrogen 10 mg/dL (8-24); Bun/Creatinine Ratio 11.8 (12.0-20.0); CO2, Blood 31 mmol/L (21-32); Calcium, Blood 8.7 mg/dL (8.5-10.1); Chloride, Blood 105 mmol/L (98-108); Creatinine, Blood 0.85 mg/dL (0.60-1.20); Glomerular Filtration Rate >60 (60-); Glucose, Blood 122 mg/dL (70-99); Potassium, Blood 3.3 mmol/L (3.5-5.5); Sodium, Blood 142 mmol/L (136-145)
--- NOTE | 2020-10-22 22:54 | NUR ---
2000 30 Y/O MALE RESTING COMFORTABLY IN BED; DENIES PAIN.
--- NOTE | 2020-10-23 04:32 | NUR ---
SHIFT SUMMARY: 30 Y/O MALE RESTING COMFORTABLY ALL SHIFT; PT LAYED BED ALL SHIFT AND TENDED NOT WANT DO ANY WALKING HALLS; PT RATED RIGHT ORBITAL PAIN 7/10 WITH NORCO 5/325MG PO GIVEN X 1 WITH RELIEF FELT; HAPPY AND COOPERATIVE; UP AD LORETTA WITHOUT ISSUE; BED LOW POSITION WITH CALL LIGHT AT SIDE.
--- NOTE | 2020-10-23 06:04 | NUR ---
SHIFT SUMMARY: 30 Y/O MALE RESTED COMFORTABLY ALL SHIFT; PT C/O RIGHT CHECK/ORBITAL PAIN RATED 7/10 WITH NORCO 5/325MG PO GIVEN TWICE WITH RELIEF FELT; PT ABLE TO VISIUALIZE OBJECTS WITHOUT VIA BOTH EYES; HAPPY AND COOPERATIVE; EAGER TO RETURN HOME SOON; BED LOW POSITION WITH CALL LIGHT AT SIDE.
[2020-10-23 09:36] LABS: Anion Gap 7 mmol/L (6-16); Blood Urea Nitrogen 15 mg/dL (8-24); Bun/Creatinine Ratio 18.9 (12.0-20.0); CO2, Blood 28 mmol/L (21-32); Calcium, Blood 8.7 mg/dL (8.5-10.1); Chloride, Blood 103 mmol/L (98-108); Creatinine, Blood 0.79 mg/dL (0.60-1.20); Glomerular Filtration Rate >60 (60-); Glucose, Blood 271 mg/dL (70-99); Potassium, Blood 3.7 mmol/L (3.5-5.5); Sodium, Blood 138 mmol/L (136-145)
[2020-10-23] MEDS ORDERED: INSULANPEN SC (16:34)
[2020-10-23] MEDS ORDERED: HUMALOG KW100 UNIT/1 (16:35)
[2020-10-23] MEDS ORDERED: ACET325 PO (16:36)
[2020-10-23] MEDS ORDERED: AMLO5 PO (16:37)
[2020-10-23] MEDS ORDERED: HYDR1TAB94 PO (16:38)
[2020-10-23] MEDS ORDERED: Flonase 0.05% N16 GM (16:38)
[2020-10-23] MEDS ORDERED: GABA300 PO (16:38)
[2020-10-23] MEDS ORDERED: LISI20 PO (16:39)
[2020-10-23] MEDS ORDERED: VISBIOME PROBI1 EACH PO (16:40)
[2020-10-23] MEDS ORDERED: AMOCLA875 (16:41)
[2020-12-28 11:11] LABS: ALDOS/RENIN RATIO <2.2 (0.0-30.0); ALDOSTERONE <1.0 ng/dL (0.0-30.0)
== END 2020-10-23 18:47 | disposition home or self-care (01) | DRG 871 ==
LOC: ER 16:21 → MEDS 18:23 → ICUW 18:23 → ICUE 18:23 → PCU 10-13 18:32 → MEDS 10-15 14:06
PROVIDERS: Emergency Medicine; Internal Medicine; Internal Medicine Critical Care Medicine; Nurse Practitioner Acute Care; ADMIT Internal Medicine
PROC: 0BH17EZ Insertion of Endotracheal Airway into Trachea, Via Natural or Artificial Opening (ICD-10-PCS; principal; 2020-10-11)
PROC: 5A1935Z Respiratory Ventilation, Less than 24 Consecutive Hours (ICD-10-PCS; 2020-10-11)
PROC: 05H533Z Insertion of Infusion Device into Right Subclavian Vein, Percutaneous Approach (ICD-10-PCS; 2020-10-11)
PROC: 3E043XZ Introduction of Vasopressor into Central Vein, Percutaneous Approach (ICD-10-PCS; 2020-10-11)
DX: A40.9 Streptococcal sepsis, unspecified (principal); E10.10 Type 1 diabetes mellitus with ketoacidosis without coma; G92 Toxic encephalopathy; J69.0 Pneumonitis due to inhalation of food and vomit; J96.90 Respiratory failure, unspecified, unspecified whether with hypoxia or hypercapnia; K29.71 Gastritis, unspecified, with bleeding; R65.21 Severe sepsis with septic shock; R57.1 Hypovolemic shock; K85.20 Alcohol induced acute pancreatitis without necrosis or infection; E87.1 Hypo-osmolality and hyponatremia; N17.9 Acute kidney failure, unspecified; L03.213 Periorbital cellulitis; Z78.1 Physical restraint status; D69.6 Thrombocytopenia, unspecified; E87.5 Hyperkalemia; E87.6 Hypokalemia; F10.20 Alcohol dependence, uncomplicated; F19.10 Other psychoactive substance abuse, uncomplicated; I10 Essential (primary) hypertension; F17.210 Nicotine dependence, cigarettes, uncomplicated; J32.9 Chronic sinusitis, unspecified
CPT/HCPCS: 0241U; 31500; 31720; 36415; 36556; 36600; 51702; 70486; 70487; 71045; 74176; 76536; 80047; 80048; 80053; 80069; 80074; 80202; 81001; 82010; 82088; 82607; 82728; 82746; 82803; 82947; 83540; 83550; 83605; 83690; 83735; 84100; 84244; 84443; 85014; 85018; 85025; 85610; 85651; 85730; 86022; 86850; 86900; 86901; 87040; 87070; 87077; 87147; 87184; 87186; 87205; 87389; 93005; 93010; 93306; 94002; 94003; 97110; 97112; 97116; 97162; 97166; 97530; 99285-25; A9270; C1751; C9113; G0480; J0295; J0360; J0610; J0690; J0692; J1815; J1885; J2310; J2405; J2550; J2704; J3010; J3370; J3411; J3480; J7030; J7042; J7050; J7060; J7512; P9046; Q2038; Q9967